=== PATIENT | female | born 1935 | race African-American/Black ===

== ENCOUNTER 2018-07-23 14:41 | Inpatient (IN) | payer BC, MEDICAID ==
[~2018-07-23] VITALS: Ht 172.7 cm; Wt 68.9 kg
[~2018-07-23 14:41] MED LIST: CHLO25CA10; CYPR4TAB43 PO; CYPROHEPTADINE; DONE10TA11 PO; FOLI-43 PO; L10 PO; MEMA10TA2 PO; NAMENDA
[2018-07-23] MEDS: SODIUM CHLORIDE 0.9% 1000ML BAG (SEPSIS BOLUS) IV ONE ×2 (15:15→15:50)
[2018-07-23 15:50] LABS: BASOPHILS % 0.7 % (0.0-2.0); EOSINOPHILS % 1.3 % (0.0-5.0); HEMATOCRIT. 46.9 % (36.0-48.0); HEMOGLOBIN. 15.2 g/dL (12.0-16.0); LYMPHOCYTES % 33.9 % (20.0-50.0); MEAN CORPUSCULAR HEMOGLOBIN 28.3 pg (28.0-32.0); MEAN CORPUSCULAR VOLUME 87.1 fL (81.0-99.0); MEAN PLATELET VOLUME 8.3 fl (7.4-10.4); MONOCYTES % 6.9 % (2.0-8.0); NEUTROPHILS % 57.2 % (40.0-76.0); PLATELET 393 x1000/uL (130-400); RED BLOOD CELL COUNT 5.39 mill/uL (4.2-5.4); RED CELL DISTRIBUTION WIDTH 15.4 % (11.6-14.6)
[2018-07-23 15:54] LABS: PARTIAL THROMBOPLASTIN TIME 28.9 sec (23.4-31.0); PROTHROMBIN TIME 10.3 sec (9.1-11.1)
[2018-07-23 15:57] LABS: CHLORIDE 98 mEq/L (98-107)
[2018-07-23 16:00] LABS: CLARITY URINE CLOUDY (CLEAR); COLOR URINE YELLOW (YELLOW); KETONES URINE NEGATIVE (NEGATIVE); LEUKOCYTE ESTERASE URINE TRACE (NEGATIVE); NITRITE URINE NEGATIVE (NEGATIVE); OCCULT BLOOD URINE NEGATIVE (NEGATIVE); PH URINE 7.5 (4.5-8.0); PROTEIN URINE NEGATIVE (NEGATIVE); SPECIFIC GRAVITY URINE 1.005 (1.005-1.030); UROBILINOGEN URINE 0.2 E.U./dL (0.2-1.0)
[2018-07-23] MEDS ORDERED: LEVOFLOXACIN 750MG PREMIX 150 ML IV ONE (16:15)
[2018-07-23] MEDS ORDERED: LEVOFLOXACIN 500MG PREMIX 100 ML IV SCH (20:00)
[2018-07-23] MEDS ORDERED: BISACODYL 5MG TABLET PO PRN (20:00)
[2018-07-23] MEDS ORDERED: ACETAMINOPHEN 650MG/20.3ML UDC PO PRN (20:00)
[2018-07-23] MEDS ORDERED: HYDROCODONE/ACETAMINOPHEN 5/325MG TABLET PO PRN (20:00)
[2018-07-24] VITALS (7 sets, daily range): BP systolic 132–150; BP diastolic 41–87
[2018-07-24] MEDS ORDERED: LORAZEPAM 0.5MG TABLET GT PRN (03:15)
[2018-07-24] MEDS ORDERED: ACETAMINOPHEN 650MG/20.3ML UDC GT PRN (03:22)
[2018-07-24] MEDS: SODIUM CHLORIDE 0.9% 1,000 ML IV SCH ×2 (04:06→23:30)
[2018-07-24] MEDS: PANTOPRAZOLE 40MG DR TABLET PO SCH ×2 (06:34→21:51)
[2018-07-24 07:28] LABS: BASOPHILS % 0.5 % (0.0-2.0); EOSINOPHILS % 0.5 % (0.0-5.0); HEMATOCRIT. 43.5 % (36.0-48.0); HEMOGLOBIN. 14.1 g/dL (12.0-16.0); LYMPHOCYTES % 27.5 % (20.0-50.0); MEAN CORPUSCULAR HEMOGLOBIN 28.4 pg (28.0-32.0); MEAN CORPUSCULAR VOLUME 87.8 fL (81.0-99.0); MEAN PLATELET VOLUME 8.9 fl (7.4-10.4); MONOCYTES % 5.9 % (2.0-8.0); NEUTROPHILS % 65.6 % (40.0-76.0); PLATELET 363 x1000/uL (130-400); RED BLOOD CELL COUNT 4.96 mill/uL (4.2-5.4); RED CELL DISTRIBUTION WIDTH 15.2 % (11.6-14.6)
[2018-07-24 07:41] LABS: CHLORIDE 105 mEq/L (98-107)
[2018-07-24] MEDS: MEMANTINE HCL 10MG TABLET GT SCH (08:01)
[2018-07-24] MEDS: ASPIRIN 81MG TABLET GT SCH (08:01)
[2018-07-24] MEDS: DONEPEZIL HCL 10MG TABLET GT SCH (08:02)
[2018-07-24] MEDS: ENOXAPARIN 40MG/0.4ML SYR SUBCUT SCH (08:02)
[2018-07-24 08:06] LABS: PLATELET ESTIMATE NORMAL
[2018-07-24] MEDS: CHLORDIAZEPOXIDE 5 MG CAPSULE PO SCH ×2 (10:22→21:51)
[2018-07-24] MEDS: LEVOFLOXACIN 250MG PREMIX 50 ML IV SCH (17:33)
[2018-07-24] MEDS ORDERED: VANCOMYCIN 1250MG in DEXTROSE 5% WATER 250ML IV NR ×2 (18:30→20:00)
[2018-07-25] VITALS: BP 125/106
[2018-07-25 04:00] VITALS: BP 126/54
[2018-07-25] MEDS: PANTOPRAZOLE 40MG DR TABLET PO SCH ×2 (06:29→08:31)
[2018-07-25 07:32] LABS: HEMATOCRIT 44.4 % (36.0-48.0); HEMOGLOBIN 14.6 g/dL (12.0-16.0); MEAN CORPUSCULAR HEMOGLOBIN 28.3 pg (28.0-32.0); MEAN CORPUSCULAR VOLUME 86.2 fL (81.0-99.0); PLATELET 356 x1000/uL (130-400); RED BLOOD CELL COUNT 5.14 mill/uL (4.2-5.4); RED CELL DISTRIBUTION WIDTH 15.3 % (11.6-14.6)
[2018-07-25 08:00] VITALS: BP 110/44
[2018-07-25] MEDS ORDERED: VANCOMYCIN 750 MG PREMIX 150 ML IV SCH (08:00)
[2018-07-25 08:18] LABS: CHLORIDE 102 mEq/L (98-107)
[2018-07-25] MEDS: CHLORDIAZEPOXIDE 5 MG CAPSULE PO SCH ×2 (08:30→21:09)
[2018-07-25] MEDS: DONEPEZIL HCL 10MG TABLET GT SCH (08:30)
[2018-07-25] MEDS: ASPIRIN 81MG TABLET GT SCH (08:30)
[2018-07-25] MEDS: MEMANTINE HCL 10MG TABLET GT SCH (08:30)
[2018-07-25] MEDS: ENOXAPARIN 40MG/0.4ML SYR SUBCUT SCH (08:31)
[2018-07-25 12:00] VITALS: BP 134/52
[2018-07-25] MEDS: VANCOMYCIN 750 MG PREMIX 150 ML IV SCH (15:54)
[2018-07-25 16:00] VITALS: BP 119/53
[2018-07-25] MEDS: LEVOFLOXACIN 250MG PREMIX 50 ML IV SCH (17:49)
[2018-07-25 20:00] VITALS: BP 104/42
[2018-07-25] MEDS: SODIUM CHLORIDE 0.9% 1,000 ML IV SCH (21:00)
[2018-07-26] VITALS: BP 134/50
[2018-07-26 04:07] VITALS: BP 136/32
[2018-07-26] MEDS: VANCOMYCIN 750 MG PREMIX 150 ML IV SCH ×2 (04:45→14:05)
[2018-07-26] MEDS: PANTOPRAZOLE 40MG DR TABLET PO SCH (06:44)
[2018-07-26 08:22] VITALS: BP 152/68
[2018-07-26] MEDS: CHLORDIAZEPOXIDE 5 MG CAPSULE PO SCH (08:56)
[2018-07-26] MEDS: MEMANTINE HCL 10MG TABLET GT SCH (08:56)
[2018-07-26] MEDS: ASPIRIN 81MG TABLET GT SCH (08:56)
[2018-07-26] MEDS: DONEPEZIL HCL 10MG TABLET GT SCH (08:56)
[2018-07-26] MEDS: ENOXAPARIN 40MG/0.4ML SYR SUBCUT SCH (08:57)
[2018-07-26 12:21] VITALS: BP 138/46
[2018-07-26 13:14] LABS: HEMATOCRIT 43.9 % (36.0-48.0); HEMOGLOBIN 14.5 g/dL (12.0-16.0); MEAN CORPUSCULAR HEMOGLOBIN 28.9 pg (28.0-32.0); MEAN CORPUSCULAR VOLUME 87.1 fL (81.0-99.0); PLATELET 358 x1000/uL (130-400); RED BLOOD CELL COUNT 5.04 mill/uL (4.2-5.4); RED CELL DISTRIBUTION WIDTH 15.5 % (11.6-14.6)
[2018-07-26 13:39] VITALS: BP 136/52
[2018-07-26 14:09] LABS: CHLORIDE 103 mEq/L (98-107)
[2018-07-26] MEDS: LEVOFLOXACIN 250MG PREMIX 50 ML IV SCH (15:44)
[2018-07-26 15:57] VITALS: BP 136/52
[2018-07-27] MEDS ORDERED: FAMOTIDINE 20MG TABLET PO SCH (09:00)
[2018-07-27] MEDS ORDERED: VANCOMYCIN 1 G PREMIX 200 ML IV SCH (09:00)
== END 2018-07-26 16:19 | disposition home or self-care (01) | DRG 871 ==
LOC: ER 14:41 → 6WST 16:47 → ENRESERV 07-24 01:16
PROVIDERS: ADMIT Internal Medicine; ATTEND Internal Medicine
DX: A41.89 Other specified sepsis (principal); G93.41 Metabolic encephalopathy; N39.0 Urinary tract infection, site not specified; R13.10 Dysphagia, unspecified; I10 Essential (primary) hypertension; E86.0 Dehydration; F03.90 Unspecified dementia, unspecified severity, without behavioral disturbance, psychotic disturbance, mood disturbance, and anxiety; F32.9 Major depressive disorder, single episode, unspecified; F41.0 Panic disorder [episodic paroxysmal anxiety]; Z74.01 Bed confinement status; Z93.1 Gastrostomy status; Z85.6 Personal history of leukemia; Z88.5 Allergy status to narcotic agent; Z79.899 Other long term (current) drug therapy
CPT/HCPCS: 36415; 71045; 80048; 80202; 83605; 84145; 84443; 84484; 85027; 86850; 86900; 87077; 87186; 93005; 93306; 96365; 99285; A6261; J1650; J1956; J3370; J7030; J7060